=== PATIENT | female | born 1985 | race Caucasian/White ===

== ENCOUNTER 2017-11-04 22:28 | Inpatient (IN) | payer OTHER, SELFPAY ==
[2017-11-04] MEDS ORDERED: Adacel (T-DAP) 0.5 ML VIAL ONE (22:40)
[2017-11-04] MEDS ORDERED: CEFAZOLIN/Water 2 GM/20 ML SYRINGE ONE (22:40)
[2017-11-04] MEDS ORDERED: Fentanyl 100 MCG/2 ML VIAL ONE (22:42)
[2017-11-04 22:52] LABS: #Eosinphils 0.1 thou/uL (0.0-0.7); #Lymphocytes 2.3 thou/uL (1.20-3.40); #Monocytes 0.7 thou/uL (0.11-0.59); #Neutrophils 11.2 thou/uL (1.40-6.50); %Basophils 0.3 % (0.0-1.0); %Eosinophils 0.8 % (0.0-10.0); %Monocytes 4.9 % (0.0-10.0); Hemoglobin 13.3 g/dL (12.0-16.0); Mean Corpuscular Hemoglobin 32.4 pg (27.0-31.0); Mean Platelet Volume 8.2 fL (7.4-10.4); Platelet Count 272 thou/uL (130-400); RBC Distribution Width 13.4 % (11.5-14.5); Red Blood Cell (RBC) Count 4.11 mill/uL (4.20-5.40); White Blood Cell (WBC) Count 14.4 thou/uL (4.8-10.8)
[2017-11-04] MEDS ORDERED: Lidocaine 1% w/Epinephrine 1:100K 20 ML VIAL ONE ×2 (22:54→23:03)
[2017-11-04 22:58] LABS: Prothrombin Time 13.4 SEC (12.0-14.7)
[2017-11-04] MEDS ORDERED: Dextrose 50% Abboject 50 ML SYRINGE SLOW IVP PRN (23:16)
[2017-11-04] MEDS ORDERED: HYDROcodone/Acetaminophen 10/325 mg Tablet PO PRN ×2 (23:16)
[2017-11-04] MEDS ORDERED: Dextrose 5% in Water 1,000 ML IV PRN (23:16)
[2017-11-04] MEDS ORDERED: Morphine 4 MG/ML Carpuject IVP PRN (23:16)
[2017-11-04] MEDS ORDERED: Ondansetron HCl/PF 4 MG/2 ML Vial IVP PRN (23:16)
[2017-11-04] MEDS ORDERED: Ondansetron ODT 4 MG TAB PO PRN (23:16)
[2017-11-04 23:20] LABS: ALT (SGPT) 19 U/L (8-55); AST (SGOT) 19 U/L (5-34); Alkaline Phosphatase 90 U/L (40-150); Anion Gap 20 mmol/L (10-20); BUN (Urea Nitrogen) 8 mg/dL (7.0-18.7); Bilirubin, Total 0.7 mg/dL (0.2-1.2); Calc. Creatinine Clearance 0 mL/min (70-130); Calcium 8.8 mg/dL (7.8-10.44); Carbon Dioxide 16 mmol/L (22-29); Chloride 106 mmol/L (98-107); Estimated GFR-MDRD 80; Glucose 124 mg/dL (70-105); Potassium 4.2 mmol/L (3.5-5.1); Sodium 138 mmol/L (136-145)
[2017-11-04] MEDS ORDERED: Acetaminophen 500 MG TAB PO PRN (23:20)
[2017-11-04] MEDS ORDERED: traMADol HCl 50 MG TAB PO PRN ×2 (23:20)
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
[2017-11-04] MEDS ORDERED: Ketorolac Tromethamine 30 MG/ML VIAL IVP PRN (23:22)
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
[2017-11-05] MEDS ORDERED: Fentanyl 100 MCG/2 ML VIAL ONE (00:03)
[2017-11-05] MEDS ORDERED: traMADol HCl 50 MG TAB PO PRN ×2 (00:11)
[2017-11-05] MEDS ORDERED: Sodium Chloride 0.9% 500 ML IV SCH (00:15)
[2017-11-05] MEDS ORDERED: Acetaminophen 500 MG TAB PO SCH (00:15)
[2017-11-05] MEDS ORDERED: Ketorolac Tromethamine 30 MG/ML VIAL IVP SCH (00:15)
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
[2017-11-05] MEDS: Sodium Chloride 0.9% 1,000 ML IV SCH ×3 (01:43→16:10)
[2017-11-05] MEDS: Morphine 4 MG/ML VIAL SLOW IVP PRN ×3 (01:43→10:00)
[2017-11-05 02:56] VITALS: BMI 26.3
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
[2017-11-05 04:52] LABS: #Lymphocytes 0.6 thou/uL (1.20-3.40); #Monocytes 0.9 thou/uL (0.11-0.59); #Neutrophils 10.8 thou/uL (1.40-6.50); %Basophils 0.1 % (0.0-1.0); %Eosinophils 0.1 % (0.0-10.0); %Lymphocytes 4.6 % (21.0-51.0); %Neutrophils 88.2 % (42.0-75.0); Hemoglobin 11.5 g/dL (12.0-16.0); Mean Corpuscular HGB CONC 32.6 g/dL (32.0-36.0); Mean Corpuscular Hemoglobin 32.4 pg (27.0-31.0); Mean Corpuscular Volume 99.6 fl (81.0-99.0); Mean Platelet Volume 8.1 fL (7.4-10.4); Platelet Count 179 thou/uL (130-400); Red Blood Cell (RBC) Count 3.56 mill/uL (4.20-5.40); White Blood Cell (WBC) Count 12.3 thou/uL (4.8-10.8)
[2017-11-05 05:12] LABS: Anion Gap 10 mmol/L (10-20); BUN (Urea Nitrogen) 7 mg/dL (7.0-18.7); Calc. Creatinine Clearance 149 mL/min (70-130); Calcium 8.1 mg/dL (7.8-10.44); Carbon Dioxide 21 mmol/L (22-29); Chloride 108 mmol/L (98-107); Estimated GFR-MDRD Greater than 90; Glucose 121 mg/dL (70-105); Potassium 3.4 mmol/L (3.5-5.1); Sodium 136 mmol/L (136-145)
[2017-11-05] MEDS ORDERED: CEFAZOLIN/Water 2 G/20 ML 2 GM in Pre-Filled Syringe 1 EACH SLOW IVP SCH (06:00)
[2017-11-05] MEDS: Acetaminophen 500 MG TAB PO SCH ×3 (06:03→17:59)
[2017-11-05] MEDS: Ketorolac Tromethamine 30 MG/ML VIAL IVP SCH ×3 (06:03→17:54)
[2017-11-05] MEDS ORDERED: CEFAZOLIN/Water 2 GM/20 ML SYRINGE SLOW IVP SCH (06:15)
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
[2017-11-05] MEDS: Famotidine 20 MG TAB PO SCH ×2 (08:19→21:24)
[2017-11-05 12:01] LABS: BHCG - Serum Negative (NEGATIVE); Pregs Control Background? CLEAR/WHITE (CLR/WHITE); Pregs Control Bar Appear? YES (CONTROL BAR)
[2017-11-05] MEDS ORDERED: Midazolam HCl 2 mg/2 ml Vial ONE (12:36)
[2017-11-05] MEDS ORDERED: CEFAZOLIN/Water 2 GM/20 ML SYRINGE ONE (12:36)
[2017-11-05] MEDS ORDERED: Morphine 4 MG/ML VIAL ONE (12:36)
[2017-11-05] MEDS ORDERED: Scopolamine 1.5 mg/72 hour Patch ONE (12:36)
[2017-11-05] MEDS ORDERED: Morphine 10 MG/ML VIAL ONE ×2 (13:23→14:28)
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
[2017-11-05] MEDS ORDERED: PROPOFOL 200 MG/20 ML VIAL ONE (15:04)
[2017-11-05] MEDS ORDERED: Ondansetron HCl/PF 4 MG/2 ML Vial ONE (15:04)
[2017-11-05] MEDS ORDERED: Lidocaine 1% PF 5 ML VIAL ONE (15:04)
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
[2017-11-05] MEDS: CEFAZOLIN/Water 2 GM/20 ML SYRINGE SLOW IVP SCH ×2 (17:52→21:24)
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
[2017-11-05] MEDS ORDERED: Enoxaparin Sodium 40 MG/0.4 ML SYRINGE SC SCH (21:00)
[2017-11-05] MEDS: Ibuprofen 600 MG TAB PO SCH (22:33)
[2017-11-05] MEDS: Acetaminophen 325 MG TAB PO SCH (22:33)
[2017-11-05] MEDS: traMADol HCl 50 MG TAB PO SCH (23:20)
[2017-11-06] MEDS: HYDROcodone/Acetaminophen 7.5/325 mg Tablet PO PRN ×3 (00:04→18:10)
[2017-11-06] MEDS ORDERED: Sodium Chloride 0.9% 500 ML IVPB SCH (00:15)
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
[2017-11-06] MEDS: traMADol HCl 50 MG TAB PO SCH ×4 (03:55→21:22)
[2017-11-06] MEDS: Acetaminophen 325 MG TAB PO SCH ×3 (03:56→15:56)
[2017-11-06 05:32] LABS: #Lymphocytes 0.8 thou/uL (1.20-3.40); #Monocytes 0.7 thou/uL (0.11-0.59); #Neutrophils 8.2 thou/uL (1.40-6.50); %Basophils 0.1 % (0.0-1.0); %Eosinophils 0.2 % (0.0-10.0); %Lymphocytes 8.5 % (21.0-51.0); %Monocytes 7.1 % (0.0-10.0); %Neutrophils 84.1 % (42.0-75.0); Hemoglobin 9.7 g/dL (12.0-16.0); Mean Corpuscular HGB CONC 32.4 g/dL (32.0-36.0); Mean Corpuscular Hemoglobin 32.3 pg (27.0-31.0); Mean Corpuscular Volume 99.7 fl (81.0-99.0); Platelet Count 148 thou/uL (130-400); RBC Distribution Width 13.4 % (11.5-14.5); Red Blood Cell (RBC) Count 2.99 mill/uL (4.20-5.40); White Blood Cell (WBC) Count 9.8 thou/uL (4.8-10.8)
[2017-11-06 05:44] LABS: Anion Gap 10 mmol/L (10-20); BUN (Urea Nitrogen) 4 mg/dL (7.0-18.7); Calc. Creatinine Clearance 162 mL/min (70-130); Calcium 7.5 mg/dL (7.8-10.44); Carbon Dioxide 21 mmol/L (22-29); Chloride 109 mmol/L (98-107); Estimated GFR-MDRD Greater than 90; Glucose 107 mg/dL (70-105); Magnesium 1.6 mg/dL (1.6-2.6); Phosphorus 2.2 mg/dL (2.3-4.7); Potassium 3.5 mmol/L (3.5-5.1); Sodium 136 mmol/L (136-145)
[2017-11-06] MEDS: CEFAZOLIN/Water 2 GM/20 ML SYRINGE SLOW IVP SCH ×3 (05:46→21:23)
[2017-11-06] MEDS: Ibuprofen 600 MG TAB PO SCH ×3 (05:46→21:22)
[2017-11-06] MEDS ORDERED: Potassium Phosphate 30 MMOL, Magnesium Sulfate 4 GM in Sodium Chloride 0.9% 250 ML 250 ML IVPB SCH (08:15)
[2017-11-06] MEDS: Enoxaparin Sodium 40 MG/0.4 ML SYRINGE SC SCH (09:25)
[2017-11-06] MEDS: Famotidine 20 MG TAB PO SCH ×2 (09:27→21:22)
[2017-11-06] MEDS: Cyclobenzaprine 10 MG TAB PO SCH ×2 (16:02→21:21)
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
[2017-11-07] MEDS: Acetaminophen 325 MG TAB PO SCH ×5 (01:00→21:50)
[2017-11-07] MEDS: traMADol HCl 50 MG TAB PO SCH ×4 (04:20→21:50)
[2017-11-07] MEDS: CEFAZOLIN/Water 2 GM/20 ML SYRINGE SLOW IVP SCH ×3 (06:35→21:51)
[2017-11-07] MEDS: Ibuprofen 600 MG TAB PO SCH ×3 (06:46→21:51)
[2017-11-07] MEDS ORDERED: Potassium Phosphate 30 MMOL in Sodium Chloride 0.9% 500 ML IVPB SCH (08:00)
[2017-11-07] MEDS ORDERED: Lidocaine 1% PF 5 ML VIAL ONE (08:15)
[2017-11-07] MEDS ORDERED: PROPOFOL 200 MG/20 ML VIAL ONE (08:15)
[2017-11-07] MEDS ORDERED: Ondansetron HCl/PF 4 MG/2 ML Vial ONE (08:15)
[2017-11-07] MEDS ORDERED: Dexamethasone 20 MG/5 ML VIAL ONE (08:15)
[2017-11-07 09:03] LABS: #Eosinphils 0.1 thou/uL (0.0-0.7); #Lymphocytes 0.6 thou/uL (1.20-3.40); #Monocytes 0.8 thou/uL (0.11-0.59); #Neutrophils 7.2 thou/uL (1.40-6.50); %Eosinophils 0.7 % (0.0-10.0); %Lymphocytes 6.5 % (21.0-51.0); %Monocytes 8.8 % (0.0-10.0); Mean Corpuscular Hemoglobin 32.4 pg (27.0-31.0); Mean Platelet Volume 8.2 fL (7.4-10.4); Platelet Count 142 thou/uL (130-400); RBC Distribution Width 13.3 % (11.5-14.5); Red Blood Cell (RBC) Count 2.76 mill/uL (4.20-5.40); White Blood Cell (WBC) Count 8.6 thou/uL (4.8-10.8)
[2017-11-07 09:22] LABS: Anion Gap 11 mmol/L (10-20); BUN (Urea Nitrogen) Less than 4 mg/dL (7.0-18.7); Calc. Creatinine Clearance 156 mL/min (70-130); Calcium 7.9 mg/dL (7.8-10.44); Carbon Dioxide 22 mmol/L (22-29); Chloride 106 mmol/L (98-107); Estimated GFR-MDRD Greater than 90; Glucose 86 mg/dL (70-105); Magnesium 1.8 mg/dL (1.6-2.6); Phosphorus 2.1 mg/dL (2.3-4.7); Potassium 3.6 mmol/L (3.5-5.1); Sodium 135 mmol/L (136-145)
[2017-11-07] MEDS: Famotidine 20 MG TAB PO SCH ×2 (09:36→21:50)
[2017-11-07] MEDS: Enoxaparin Sodium 40 MG/0.4 ML SYRINGE SC SCH (09:36)
[2017-11-07] MEDS: Cyclobenzaprine 10 MG TAB PO SCH ×3 (09:36→21:49)
[2017-11-07] MEDS ORDERED: Morphine 4 MG/ML Carpuject SLOW IVP PRN (10:05)
[2017-11-07] MEDS ORDERED: Acetaminophen 1,000 MG in Premix Bag 1 BAG IVPB PRN (10:06)
[2017-11-07] MEDS ORDERED: Morphine 4 MG/ML VIAL SLOW IVP PRN (10:54)
[2017-11-07] MEDS ORDERED: Fentanyl 250 MCG/5 ML VIAL ONE ×2 (11:30→12:48)
[2017-11-07] MEDS ORDERED: CEFAZOLIN/Water 2 GM/20 ML SYRINGE ONE (12:25)
[2017-11-07] MEDS ORDERED: Bisacodyl 10 MG SUPP PR SCH (13:00)
[2017-11-07] MEDS ORDERED: Promethazine HCl 25 MG/ML VIAL IM PRN (13:28)
[2017-11-07] MEDS ORDERED: Ondansetron HCl/PF 4 MG/2 ML Vial IVP PRN (13:28)
[2017-11-07] MEDS ORDERED: Meperidine HCl/PF 25 MG/ML VIAL SLOW IVP PRN (13:28)
[2017-11-07] MEDS ORDERED: Promethazine HCl 25 MG/ML VIAL SLOW IVP PRN (13:28)
[2017-11-07] MEDS ORDERED: CEFAZOLIN/Water 2 GM/20 ML SYRINGE SLOW IVP SCH (13:45)
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
[2017-11-07] MEDS ORDERED: Fentanyl 100 MCG/2 ML VIAL ONE (14:03)
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
[2017-11-07] MEDS: Senokot S 8.6-50 MG TAB PO SCH (21:50)
[2017-11-08] MEDS: traMADol HCl 50 MG TAB PO SCH ×2 (04:22→09:42)
[2017-11-08] MEDS: Acetaminophen 325 MG TAB PO SCH ×2 (04:23→09:42)
[2017-11-08] MEDS: CEFAZOLIN/Water 2 GM/20 ML SYRINGE SLOW IVP SCH ×2 (05:41→14:48)
[2017-11-08] MEDS: Ibuprofen 600 MG TAB PO SCH ×2 (05:41→14:48)
[2017-11-08] MEDS ORDERED: Polyethylene Glycol 3350 17 GM Packet PO SCH (09:00)
[2017-11-08] MEDS: Enoxaparin Sodium 40 MG/0.4 ML SYRINGE SC SCH (09:41)
[2017-11-08] MEDS: Famotidine 20 MG TAB PO SCH (09:42)
[2017-11-08] MEDS: Cyclobenzaprine 10 MG TAB PO SCH ×2 (09:42→14:48)
[2017-11-08] MEDS: Senokot S 8.6-50 MG TAB PO SCH (09:43)
[2017-11-08] MEDS: HYDROcodone/Acetaminophen 7.5/325 mg Tablet PO PRN (11:33)
[2017-11-08 16:08] VITALS: BP 125/68; TEMP 98.4
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
== END 2017-11-08 17:17 | disposition home or self-care (01) | DRG 464 ==
LOC: ERS 22:28 → EEVIPCON 22:28 → SURG A 11-05 01:16
PROVIDERS: ADMIT Specialist; ATTEND Specialist
PROC: 0HQ1XZZ Repair Face Skin, External Approach (ICD-10-PCS; 2017-11-04)
PROC: 0HQ1XZZ Repair Face Skin, External Approach (ICD-10-PCS; 2017-11-04)
PROC: 0PSL04Z Reposition Left Ulna with Internal Fixation Device, Open Approach (ICD-10-PCS; principal; 2017-11-05)
PROC: 0PSF04Z Reposition Right Humeral Shaft with Internal Fixation Device, Open Approach (ICD-10-PCS; 2017-11-05)
PROC: 0PSJ04Z Reposition Left Radius with Internal Fixation Device, Open Approach (ICD-10-PCS; 2017-11-05)
PROC: 0JDG0ZZ Extraction of Right Lower Arm Subcutaneous Tissue and Fascia, Open Approach (ICD-10-PCS; 2017-11-05)
PROC: 0JCP0ZZ Extirpation of Matter from Left Lower Leg Subcutaneous Tissue and Fascia, Open Approach (ICD-10-PCS; 2017-11-05)
PROC: 0JBP0ZZ Excision of Left Lower Leg Subcutaneous Tissue and Fascia, Open Approach (ICD-10-PCS; 2017-11-07)
DX: S52.252B Displaced comminuted fracture of shaft of ulna, left arm, initial encounter for open fracture type I or II (principal); S42.451A Displaced fracture of lateral condyle of right humerus, initial encounter for closed fracture; I95.9 Hypotension, unspecified; S81.822A Laceration with foreign body, left lower leg, initial encounter; S52.352B Displaced comminuted fracture of shaft of radius, left arm, initial encounter for open fracture type I or II; S01.411A Laceration without foreign body of right cheek and temporomandibular area, initial encounter; S51.811A Laceration without foreign body of right forearm, initial encounter; S61.511A Laceration without foreign body of right wrist, initial encounter; S01.81XA Laceration without foreign body of other part of head, initial encounter; Y00.XXXA Assault by blunt object, initial encounter; X99.8XXA Assault by other sharp object, initial encounter; S01.01XA Laceration without foreign body of scalp, initial encounter; F17.210 Nicotine dependence, cigarettes, uncomplicated
CPT/HCPCS: 12011; 29105; 36415; 70450; 70486; 71045; 72125; 76001; 80048; 80053; 83735; 84100; 84703; 85025; 85610; 85730; 86850; 86900; 86901; 90471; 90715; 94760; 96361; 96374; 96375; 96376; 99406; C1713; G0390; G8987-GO-CJ; G8988-GO-CI; J1100; J1650; J1885; J2001; J2250; J2270; J2405; J2704; J3010; J3475; J7050

== ENCOUNTER 2017-11-11 14:42 | Emergency (ER) | payer SELFPAY | END 2017-11-11 16:25 | disposition left against medical advice (07) | LOC: ERS 14:42 | DX: Z53.21 Procedure and treatment not carried out due to patient leaving prior to being seen by health care provider (principal) ==